=== PATIENT | female | born 1945 | race Caucasian/White ===

== ENCOUNTER 2020-06-29 14:35 | Inpatient (IN) | payer OTHER ==
[~2020-06-29] VITALS: Ht 175 cm; Wt 84.1 kg
[~2020-06-29 14:35] MED LIST: AMIODARONE HCL200 MG PO; AMIODARONE HCL400 MG PO; AMLODIPINE BESYL5 MG PO; AMOXICILLIN500 MG PO; ASPIR-LOW81 MG PO; CLARITIN10 MG PO; COUMADIN 5MG TAB5 MG PO; COUMADIN 7.5MG7.5 MG PO; DIGOX125 MCG PO; FISH OIL 1,2001 EAC1 PO; FLONASE 0.05% N16 GM; HYDROCODON-ACE1 EAC4 PO; ISOSORBIDE MON120 MG PO; ISOSORBIDE MONO30 MG PO; LASIX20 MG PO; LASIX40 MG PO; LEVAQUIN500 MG PO; LEVOTHYROXINE150 MCG PO; LIPITOR TAB 1010 MG PO; LISINOPRIL20 MG PO; LOPRESSOR 25 MG25 MG PO; NEURONTIN 100100 MG PO; NITROMIST8.5 GM SL; NITROSTAT0.4 MG SL; NORVASC 5 MG TAB5 MG PO; NOVOLIN N100 UNIT/1 SQ; NOVOLIN R100 UNIT/1 SQ; PLAVIX 75 MG TA75 MG PO; PRINIVIL5 MG PO; PROTONIX 40 MG40 M1 PO; RANITIDINE HCL300 MG PO; TESSALON PERLE100 MG PO; ULTRAM50 MG PO; VITAMIN B-1000 MCG/M IM; VITAMIN D250000 UNIT PO; ZANTAC150 MG PO
[2020-06-29 15:16] LABS: RED BLOOD COUNT 3.62 M/UL (4.00-5.10); WHITE BLOOD COUNT 6.4 K/UL (4.5-11.0)
[2020-06-29] MEDS ORDERED: AMLODIPINE BESYL5 MG PO (19:44)
[2020-06-29] MEDS ORDERED: WARFARIN SODIUM5 MG PO (19:45)
[2020-06-29] MEDS ORDERED: NOVOLIN R100 UNIT/1 INJ (19:49)
[2020-06-29] MEDS ORDERED: DOK100 MG PO (19:50)
[2020-06-29] MEDS ORDERED: IPRAT-ALBUT 0.5-3 ML INH (19:50)
[2020-06-29] MEDS ORDERED: EVOLOCUMAB 140 MG/ML SQ (19:51)
[2020-06-30 04:04] LABS: HEMOGLOBIN 7.3 gm/dl (12.3-15.3); WHITE BLOOD COUNT 6.1 K/UL (4.5-11.0)
[2020-06-30 04:06] LABS: RED BLOOD COUNT 3.24 M/UL (4.00-5.10)
[2020-06-30 15:35] LABS: HEMOGLOBIN 7.5 gm/dl (12.3-15.3)
[2020-07-01 03:27] LABS: HEMOGLOBIN 7.3 gm/dl (12.3-15.3); RED BLOOD COUNT 3.3 M/UL (4.00-5.10); WHITE BLOOD COUNT 6.4 K/UL (4.5-11.0)
[2020-07-01 18:32] LABS: HEMOGLOBIN 7.2 gm/dl (12.3-15.3)
--- NOTE | 2020-07-03 02:40 | NUR ---
0235- PT C/O SHOULDER ACHE. STATES IT IS THE ACHING/BURNING SHE NORMALLY GETS FROM ARTHRITIS. PT STATES THAT IT HAS BEEN HAPPENING OFF AND ON ALL DAY. PT REQUESTING TYLENOL. ORDER OBTAINED.
[2020-07-03 07:21] LABS: HEMOGLOBIN 8.9 gm/dl (12.3-15.3); RED BLOOD COUNT 3.84 M/UL (4.00-5.10); WHITE BLOOD COUNT 7.1 K/UL (4.5-11.0)
[2020-07-04 03:37] LABS: HEMOGLOBIN 8.8 gm/dl (12.3-15.3); RED BLOOD COUNT 3.72 M/UL (4.00-5.10); WHITE BLOOD COUNT 8.2 K/UL (4.5-11.0)
[2020-07-05 03:02] LABS: HEMOGLOBIN 8.4 gm/dl (12.3-15.3); RED BLOOD COUNT 3.5 M/UL (4.00-5.10); WHITE BLOOD COUNT 6.6 K/UL (4.5-11.0)
[2020-07-05] MEDS ORDERED: FERROUS SULFAT325 M2 PO (16:09)
== END 2020-07-05 18:25 | disposition home health service (06) | DRG 291 ==
LOC: ER1 14:35 → M/S 17:35 → CDU 17:35 → M/S 19:20
PROVIDERS: Emergency Medicine; Family Medicine; Physician Assistant; Physician Assistant Medical; ADMIT Internal Medicine
PROC: 30233N1 Transfusion of Nonautologous Red Blood Cells into Peripheral Vein, Percutaneous Approach (ICD-10-PCS; principal; 2020-07-02)
PROC: 30233N1 Transfusion of Nonautologous Red Blood Cells into Peripheral Vein, Percutaneous Approach (ICD-10-PCS; 2020-07-03)
DX: I13.0 Hypertensive heart and chronic kidney disease with heart failure and stage 1 through stage 4 chronic kidney disease, or unspecified chronic kidney disease (principal); I50.23 Acute on chronic systolic (congestive) heart failure; N17.9 Acute kidney failure, unspecified; D62 Acute posthemorrhagic anemia; J96.11 Chronic respiratory failure with hypoxia; K92.2 Gastrointestinal hemorrhage, unspecified; Z20.822 Contact with and (suspected) exposure to COVID-19; K31.7 Polyp of stomach and duodenum; N18.30 Chronic kidney disease, stage 3 unspecified; E11.22 Type 2 diabetes mellitus with diabetic chronic kidney disease; I25.5 Ischemic cardiomyopathy; I48.0 Paroxysmal atrial fibrillation; E03.9 Hypothyroidism, unspecified; H91.90 Unspecified hearing loss, unspecified ear; E78.5 Hyperlipidemia, unspecified; E66.9 Obesity, unspecified; E87.6 Hypokalemia; I08.3 Combined rheumatic disorders of mitral, aortic and tricuspid valves; E11.43 Type 2 diabetes mellitus with diabetic autonomic (poly)neuropathy; K31.84 Gastroparesis; H54.8 Legal blindness, as defined in USA; I25.119 Atherosclerotic heart disease of native coronary artery with unspecified angina pectoris; I49.5 Sick sinus syndrome; I27.20 Pulmonary hypertension, unspecified; F17.200 Nicotine dependence, unspecified, uncomplicated; D50.9 Iron deficiency anemia, unspecified; Z95.1 Presence of aortocoronary bypass graft; Z95.5 Presence of coronary angioplasty implant and graft; I25.2 Old myocardial infarction; Z95.810 Presence of automatic (implantable) cardiac defibrillator; Z68.25 Body mass index [BMI] 25.0-25.9, adult; Z90.49 Acquired absence of other specified parts of digestive tract; Z88.1 Allergy status to other antibiotic agents; Z88.8 Allergy status to other drugs, medicaments and biological substances; Z79.01 Long term (current) use of anticoagulants; Z79.02 Long term (current) use of antithrombotics/antiplatelets; Z79.890 Hormone replacement therapy; Z79.4 Long term (current) use of insulin; Z79.899 Other long term (current) drug therapy; Z83.3 Family history of diabetes mellitus; Z82.49 Family history of ischemic heart disease and other diseases of the circulatory system
CPT/HCPCS: ECHO; 0240U; 36415; 36430; 71045; 80048; 80053; 82272; 82550; 82553; 82607; 82728; 82746; 82962; 83036; 83540; 83550; 83690; 83735; 83874; 83880; 84100; 84466; 84484; 85014; 85018; 85025; 85027; 85045; 85610; 85730; 86850; 86900; 86901; 86920; 93005; 93306; 94640; 94760; 96374; 96375; 97116; 97161; 99285; J1756; J2704; J7040; J7050; P9016

== ENCOUNTER 2020-07-06 17:23 | Emergency (ER) | payer OTHER ==
[~2020-07-06 17:23] MED LIST changes: +DOK100 MG PO; +EVOLOCUMAB 140 MG/ML SQ; +FERROUS SULFAT325 M2 PO; +IPRAT-ALBUT 0.5-3 ML INH; +NOVOLIN R100 UNIT/1 INJ; +WARFARIN SODIUM5 MG PO
[2020-07-06 20:28] LABS: WHITE BLOOD COUNT 6.3 K/UL (4.5-11.0)
[2020-07-06 20:34] LABS: RED BLOOD COUNT 4.19 M/UL (4.00-5.10)
== END 2020-07-07 02:19 | disposition home or self-care (01) ==
LOC: ER1 17:23
PROVIDERS: Physician Assistant
DX: I25.10 Atherosclerotic heart disease of native coronary artery without angina pectoris (principal); I11.0 Hypertensive heart disease with heart failure; I50.9 Heart failure, unspecified; E78.5 Hyperlipidemia, unspecified; Z95.1 Presence of aortocoronary bypass graft; Z98.890 Other specified postprocedural states; Z99.81 Dependence on supplemental oxygen; Z88.8 Allergy status to other drugs, medicaments and biological substances; Z79.01 Long term (current) use of anticoagulants; Z79.899 Other long term (current) drug therapy
CPT/HCPCS: 36415; 70450; 71045; 80053; 82550; 82553; 83874; 83880; 84484; 85025; 85610; 93005; 96374; 99285; J1940

== ENCOUNTER → 2020-09-10 | Day surgery (SDC) | payer OTHER ==
[~2020-09-10] MED LIST changes: +CARVEDILOL3.125 MG PO; +COREG 3.125M3.125 MG PO
== END | disposition home or self-care (01) ==
LOC: OR 06:51
DX: K31.7 Polyp of stomach and duodenum (principal); D50.0 Iron deficiency anemia secondary to blood loss (chronic); I25.10 Atherosclerotic heart disease of native coronary artery without angina pectoris; I11.0 Hypertensive heart disease with heart failure; I50.22 Chronic systolic (congestive) heart failure; E11.9 Type 2 diabetes mellitus without complications; E03.9 Hypothyroidism, unspecified; I48.91 Unspecified atrial fibrillation; E66.9 Obesity, unspecified; Z87.891 Personal history of nicotine dependence; Z95.0 Presence of cardiac pacemaker; Z90.49 Acquired absence of other specified parts of digestive tract; Z68.33 Body mass index [BMI] 33.0-33.9, adult; Z82.49 Family history of ischemic heart disease and other diseases of the circulatory system; Z83.3 Family history of diabetes mellitus; Z80.8 Family history of malignant neoplasm of other organs or systems
CPT/HCPCS: 36415; 82962; 85610; 85730; J2704; J7040

== ENCOUNTER 2020-11-05 22:06 | Observation (INO) | payer OTHER ==
[~2020-11-05] VITALS: Ht 175.3 cm; Wt 100.3 kg
[~2020-11-05 22:06] MED LIST changes: -CARVEDILOL3.125 MG PO; -COREG 3.125M3.125 MG PO
[2020-11-05 23:14] LABS: HEMOGLOBIN 11.8 gm/dl (12.3-15.3); RED BLOOD COUNT 3.88 M/UL (4.00-5.10); WHITE BLOOD COUNT 6.3 K/UL (4.5-11.0)
[2020-11-06] MEDS ORDERED: COREG 3.125M3.125 MG PO (04:36)
[2020-11-06] MEDS ORDERED: AMLODIPINE BESYL5 MG PO (15:19)
[2020-11-06] MEDS ORDERED: CARVEDILOL3.125 MG PO (15:19)
[2020-11-06] MEDS ORDERED: LASIX20 MG PO (15:26)
== END 2020-11-06 19:15 | disposition home or self-care (01) ==
LOC: ER1 22:06 → PROG CARE 11-06 03:00 → CDU 11-06 03:00 → PROG CARE 11-06 03:37
PROVIDERS: Physician Assistant Medical; ADMIT Internal Medicine
DX: I25.118 Atherosclerotic heart disease of native coronary artery with other forms of angina pectoris (principal); I13.0 Hypertensive heart and chronic kidney disease with heart failure and stage 1 through stage 4 chronic kidney disease, or unspecified chronic kidney disease; E11.22 Type 2 diabetes mellitus with diabetic chronic kidney disease; N18.30 Chronic kidney disease, stage 3 unspecified; I50.22 Chronic systolic (congestive) heart failure; I48.0 Paroxysmal atrial fibrillation; I25.5 Ischemic cardiomyopathy; E78.5 Hyperlipidemia, unspecified; I49.5 Sick sinus syndrome; E03.9 Hypothyroidism, unspecified; K21.9 Gastro-esophageal reflux disease without esophagitis; E66.9 Obesity, unspecified; Z68.32 Body mass index [BMI] 32.0-32.9, adult; Z87.891 Personal history of nicotine dependence; Z95.5 Presence of coronary angioplasty implant and graft; Z88.1 Allergy status to other antibiotic agents; Z88.8 Allergy status to other drugs, medicaments and biological substances; Z79.4 Long term (current) use of insulin; Z79.01 Long term (current) use of anticoagulants; Z79.02 Long term (current) use of antithrombotics/antiplatelets; Z79.899 Other long term (current) drug therapy; Z20.822 Contact with and (suspected) exposure to COVID-19
CPT/HCPCS: 71045; 80053; 82550; 82553; 82962; 83874; 83880; 84484; 85025; 85610; 93005; 99285; G0378; U0002

== ENCOUNTER 2021-01-07 17:29 | Inpatient (IN) | payer OTHER ==
[~2021-01-07] VITALS: Ht 175.3 cm; Wt 91.3 kg
[~2021-01-07 17:29] MED LIST changes: +CARVEDILOL3.125 MG PO; +COREG 3.125M3.125 MG PO; -DOK100 MG PO; -IPRAT-ALBUT 0.5-3 ML INH; -ISOSORBIDE MONO30 MG PO; -VITAMIN B-1000 MCG/M IM; -WARFARIN SODIUM5 MG PO
[2021-01-07] MEDS ORDERED: DOK100 MG PO (19:50)
[2021-01-07 20:08] LABS: HEMOGLOBIN 14.1 gm/dl (12.3-15.3); RED BLOOD COUNT 4.45 M/UL (4.00-5.10); WHITE BLOOD COUNT 6.1 K/UL (4.5-11.0)
[2021-01-08 03:51] LABS: HEMOGLOBIN 13.3 gm/dl (12.3-15.3); RED BLOOD COUNT 4.18 M/UL (4.00-5.10); WHITE BLOOD COUNT 4.8 K/UL (4.5-11.0)
[2021-01-08] MEDS ORDERED: ISOSORBIDE MONO30 MG PO (12:31)
[2021-01-08] MEDS ORDERED: CARVEDILOL6.25 MG PO (13:06)
[2021-01-08] MEDS ORDERED: VITAMIN D21250 MCG PO (13:07)
[2021-01-08] MEDS ORDERED: FUROSEMIDE40 MG PO (13:08)
[2021-01-08] MEDS ORDERED: SYNTHROID175 MCG PO (13:09)
[2021-01-08] MEDS ORDERED: GABAPENTIN100 MG PO (13:09)
[2021-01-08] MEDS ORDERED: AMIODARONE HCL200 MG PO (13:10)
[2021-01-08] MEDS ORDERED: PLAVIX75 MG PO (13:10)
[2021-01-08] MEDS ORDERED: NOVOLIN N100 UNIT/1 SQ ×2 (13:12→13:13)
[2021-01-08] MEDS ORDERED: FERROUS SULFAT325 M2 PO (13:21)
[2021-01-08] MEDS ORDERED: NOVOLIN R100 UNIT/1 SQ (13:24)
[2021-01-08] MEDS ORDERED: TYLENOL EXTRA500 MG PO (13:25)
[2021-01-08] MEDS ORDERED: CYANOCOBAL1000 MCG/1 IM (19:16)
[2021-01-08] MEDS ORDERED: WARFARIN SODIUM5 MG PO (19:45)
[2021-01-08] MEDS ORDERED: ALBUTEROL2.5 MG/3 M INH (19:50)
[2021-01-09 03:12] LABS: HEMOGLOBIN 13.2 gm/dl (12.3-15.3); RED BLOOD COUNT 4.21 M/UL (4.00-5.10)
[2021-01-09 03:15] LABS: WHITE BLOOD COUNT 7.4 K/UL (4.5-11.0)
[2021-01-10 06:41] LABS: HEMOGLOBIN 13.7 gm/dl (12.3-15.3); RED BLOOD COUNT 4.35 M/UL (4.00-5.10); WHITE BLOOD COUNT 6.1 K/UL (4.5-11.0)
== END 2021-01-11 12:46 | disposition home or self-care (01) | DRG 291 ==
LOC: ER1 17:29 → M/S 21:49 → CDU 21:49 → M/S 01-08 13:49
PROVIDERS: Internal Medicine; Physician Assistant Medical; ADMIT Internal Medicine
DX: I13.0 Hypertensive heart and chronic kidney disease with heart failure and stage 1 through stage 4 chronic kidney disease, or unspecified chronic kidney disease (principal); J96.21 Acute and chronic respiratory failure with hypoxia; Z20.822 Contact with and (suspected) exposure to COVID-19; I50.23 Acute on chronic systolic (congestive) heart failure; E87.3 Alkalosis; I48.20 Chronic atrial fibrillation, unspecified; E03.9 Hypothyroidism, unspecified; I25.10 Atherosclerotic heart disease of native coronary artery without angina pectoris; I25.5 Ischemic cardiomyopathy; D50.9 Iron deficiency anemia, unspecified; K21.9 Gastro-esophageal reflux disease without esophagitis; E66.01 Morbid (severe) obesity due to excess calories; E11.22 Type 2 diabetes mellitus with diabetic chronic kidney disease; D63.1 Anemia in chronic kidney disease; E87.6 Hypokalemia; N18.30 Chronic kidney disease, stage 3 unspecified; E78.5 Hyperlipidemia, unspecified; I48.0 Paroxysmal atrial fibrillation; Z95.810 Presence of automatic (implantable) cardiac defibrillator; Z79.01 Long term (current) use of anticoagulants; Z95.1 Presence of aortocoronary bypass graft; Z95.5 Presence of coronary angioplasty implant and graft; Z90.49 Acquired absence of other specified parts of digestive tract; Z88.8 Allergy status to other drugs, medicaments and biological substances; Z88.1 Allergy status to other antibiotic agents; Z88.6 Allergy status to analgesic agent; Z68.29 Body mass index [BMI] 29.0-29.9, adult
CPT/HCPCS: 36415; 36600; 71045; 80048; 80053; 82533; 82550; 82553; 82803; 82962; 83874; 83880; 84439; 84443; 84484; 85025; 85027; 85610; 87040; 93005; 94640; 94664; 94760; 96374; 96375; 96376; 97161; 99285; G0378; J1120; J1205; J1650; J1940; J1956; J2405; J2930; U0002

== ENCOUNTER → 2021-08-03 | Outpatient (CLI) | payer OTHER ==
[~2021-08-03] MED LIST changes: +ALBUTEROL2.5 MG/3 M INH; +CARVEDILOL6.25 MG PO; +CYANOCOBAL1000 MCG/1 IM; +DOK100 MG PO; +FUROSEMIDE40 MG PO; +GABAPENTIN100 MG PO; +ISOSORBIDE MONO30 MG PO; +PLAVIX75 MG PO; +SYNTHROID175 MCG PO; +TYLENOL EXTRA500 MG PO; +VITAMIN D21250 MCG PO; +WARFARIN SODIUM5 MG PO
== END ==
LOC: HEART 5 09:07
DX: R06.02 Shortness of breath (principal); Z79.899 Other long term (current) drug therapy; R94.2 Abnormal results of pulmonary function studies
CPT/HCPCS: 94060; 94729

== ENCOUNTER → 2021-10-07 | Outpatient (CLI) | payer OTHER ==
[~2021-10-07] MED LIST changes: +CLEOCIN HCL300 MG PO; +DEMADEX 20 MG T20 MG PO; +LEVOFLOXACIN500 MG PO; +XARELTO15 MG PO
[2021-10-07 11:48] LABS: HEMOGLOBIN 11.4 gm/dl (12.3-15.3); RED BLOOD COUNT 3.49 M/UL (4.00-5.10); WHITE BLOOD COUNT 4.8 K/UL (4.5-11.0)
== END ==
LOC: LAB 11:14
PROVIDERS: Internal Medicine Cardiovascular Disease
DX: Z45.02 Encounter for adjustment and management of automatic implantable cardiac defibrillator (principal); I25.5 Ischemic cardiomyopathy; I48.91 Unspecified atrial fibrillation; I11.0 Hypertensive heart disease with heart failure; I50.22 Chronic systolic (congestive) heart failure; E78.5 Hyperlipidemia, unspecified
CPT/HCPCS: 36415; 71046; 80053; 80061; 83735; 85025

== ENCOUNTER → 2021-10-09 | Outpatient (CLI) | payer OTHER | LOC: CATH 06:51 | DX: Z45.02 Encounter for adjustment and management of automatic implantable cardiac defibrillator (principal); I48.0 Paroxysmal atrial fibrillation; I25.10 Atherosclerotic heart disease of native coronary artery without angina pectoris; I13.0 Hypertensive heart and chronic kidney disease with heart failure and stage 1 through stage 4 chronic kidney disease, or unspecified chronic kidney disease; E11.22 Type 2 diabetes mellitus with diabetic chronic kidney disease; N18.9 Chronic kidney disease, unspecified; I50.22 Chronic systolic (congestive) heart failure; I25.5 Ischemic cardiomyopathy; E03.9 Hypothyroidism, unspecified; I35.0 Nonrheumatic aortic (valve) stenosis; I25.2 Old myocardial infarction; D68.59 Other primary thrombophilia; Z87.891 Personal history of nicotine dependence; Z95.810 Presence of automatic (implantable) cardiac defibrillator; Z88.8 Allergy status to other drugs, medicaments and biological substances; Z79.4 Long term (current) use of insulin; Z79.899 Other long term (current) drug therapy | CPT/HCPCS: 33240; 82962; 93641; 99152; 99153; C1721; J2250; J3010; J3370; J7040; J7050 ==